=== PATIENT | female | born 1995 | race Caucasian/White ===

== ENCOUNTER → 2019-06-09 08:56 | Outpatient (BNVA) | payer BC, MEDICAID, SELFPAY | PROVIDERS: PCP Nurse Practitioner Family; Visit Provider Nurse Practitioner Family | DX: Z3A.01 Less than 8 weeks gestation of pregnancy (principal) | CPT/HCPCS: 81025 ==

== ENCOUNTER 2020-01-11 17:21 | Outpatient (CLI) | payer BC, MEDICAID, SELFPAY ==
[2020-01-11 18:02] VITALS: TEMP 36.7
[2020-01-11 18:04] VITALS: BMI 24.0
[2020-01-11 18:41] LABS: Bilirubin Urine Neg (NEGATIVE); Blood Urine Neg (Negative); Glucose Urine UA Norm (Normal); Ketones Urine Negative (Negative); Leukocyte Esterase Urine Negative (Negative); Nitrate Urine Negative (Negative); Protein Urine Neg (Negative); Urine Appearance Clear (CLEAR); Urine Color Yellow (Yellow); Urobilinogen Urine 4 mg/dL (Negative); pH Urine 6.5 (5-7)
[2020-01-11 18:42] LABS: Add Urine Culture? No; Bacteria Urine TRACE; Mucus Urine TRACE; Squamous Epithelial Cell Urine 0-4 (0-5); WBC Urine 0-4 /hpf (0-5)
== END 2020-01-11 19:18 | disposition home or self-care (01) ==
LOC: OPOB 17:33 → OBGYN 19:11
PROVIDERS: PCP Nurse Practitioner Family; Visit Provider Family Medicine
DX: O26.899 Other specified pregnancy related conditions, unspecified trimester (principal); Z3A.00 Weeks of gestation of pregnancy not specified; R10.9 Unspecified abdominal pain
CPT/HCPCS: 59025; 81001; 99211

== ENCOUNTER 2020-02-12 15:13 | Outpatient (CLI) | payer BC, MEDICAID, SELFPAY ==
[2020-02-12 15:13] VITALS: RESP 16; TEMP 37
[2020-02-12 15:21] VITALS: BMI 25.7
[2020-02-12 15:28] VITALS: BP 133/64; PULSE 112
== END 2020-02-12 16:16 | disposition home or self-care (01) ==
LOC: OPOB 15:19 → OBGYN 15:20
PROVIDERS: PCP Nurse Practitioner Family; Visit Provider Family Medicine
DX: O26.899 Other specified pregnancy related conditions, unspecified trimester (principal); Z3A.00 Weeks of gestation of pregnancy not specified; R10.9 Unspecified abdominal pain
CPT/HCPCS: 59025; 99211

== ENCOUNTER 2020-02-16 22:12 | Inpatient (IN) | payer BC, MEDICAID, SELFPAY ==
[2020-02-16 21:19] VITALS: TEMP 37
[2020-02-16 21:26] VITALS: BMI 25.9
[2020-02-16 21:39] VITALS: BP 97/57; PULSE 110
[2020-02-16 23:28] VITALS: BP 112/63; PULSE 96
[2020-02-17] VITALS (133 sets, daily range): BP systolic 0–153; BP diastolic 0–88; PULSE 50–146; RESP 16–22; TEMP 36.5–37.6; O2SAT 96–99
[2020-02-17 00:43] LABS: Basophils % 0.2 %; Eosinophils # 0.1 10^3/uL (0.0-0.8); Eosinophils % 0.4 %; Hematocrit 33.4 % (37.0-47.0); Hemoglobin 10.9 g/dL (11.5-15.3); Lymphocytes # 3.2 10^3/uL (0.8-4.8); Lymphocytes % 19.1 %; Mean Corpuscular HGB Conc 32.6 g/dL (30.0-36.0); Mean Corpuscular Hemoglobin 29.5 pg (28.0-34.0); Mean Corpuscular Volume 90.5 fL (81-99); Mean Platelet Volume 10.6 fL (7.4-10.4); Monocytes # 1.2 10^3/uL (0.2-0.9); Monocytes % 6.9 %; Neutrophils # 12.28 10^3/uL (1.8-7.7); Neutrophils % 72.7 %; Nucleated Red Blood Cells % 0 %; Platelet Count 287 10^3/cmm (130-400); Red Blood Count 3.69 10^6/uL (4.1-5.3); Red Cell Distribution Width 12.8 % (12.1-15.1); White Blood Count 16.9 10^3/uL (4.0-10.0)
[2020-02-17] MEDS: lactated ringers 1,000 ML 999 ML IV (01:03)
--- NOTE | 2020-02-17 02:15 | ANES.PREANE2 ---
Pre-Anesthetic Assessment Pre-Anesthetic Assessment: Height/Weight: Height 1.68 m Weight 73.028 kg Temp Pulse BP 98.6 F 82 116/67 02/16/20 21:19 02/17/20 01:06 02/17/20 01:06 Preop Diagnosis: labor Proposed Procedure: epidural Was Beta Yamini taken within 24 hours: N/A Last Intake: 20:00 Social: Social History: Tobacco (1/2 ppd) and No alcohol Pack years: 5 yrs Exam: Pre-Anes Outpt Exam: alert, oriented x 3, clear to auscultation bilaterally and regular rate & rhythm Airway: Submandibular: WNL Cervical ROM: WNL MP: 1 Additional comments: tongue ring Pulmonary: Pulmonary: None reported CV/HEM: CV/HEM: None reported : : None reported Hepatic: Hepatic: None reported GI: GI: GERD (with ) Metabolic: Metabolic: None reported Musc/skel: Musc/skel: None reported Neuropsych: Neuropsych: None reported Anesthetic Plan: ASA status: 2 Anesthesia: Anesthesia Evaluation and Regional (specify below) (epidural) Risk of > 500 ml blood loss (7ml/kg in children): No PFSH Anesthesia PFSH: Family History (Updated 06/09/19 @ 08:44 by Elly Yadav LPN) Other Cancer Hypertension Female Reproductive History: Date of last menstrual period: 05/01/19 : 1 Data Anesthesia CBC & Chem 7: 02/17/20 00:00 Other Labs: Laboratory Results - last 48 hr 02/17/20 00:00 WBC 16.9 H RBC 3.69 L Hgb 10.9 L Hct 33.4 L MCV 90.5 MCH 29.5 MCHC 32.6 RDW 12.8 Plt Count 287 MPV 10.6 H Neut % (Auto) 72.7 Lymph % (Auto) 19.1 Metcalfe % (Auto) 6.9 Eos % (Auto) 0.4 Baso % (Auto) 0.2 Neut # (Auto) 12.28 H Lymph # (Auto) 3.2 Metcalfe # (Auto) 1.2 H Eos # (Auto) 0.1 Baso # (Auto) 0.0 Nucleated RBC % (auto) 0 Nucleated RBCs # 0.0 Cardiac Studies: No Data to Display
--- NOTE | 2020-02-17 02:51 | ANES.PROC ---
Anesthesia Procedures Procedure/Date: 02/17/20 Epidural: Time Out Performed: Yes Consents Signed: Procedure Consent and NPO Consent Consent: requested by attending/covering physician, from patient, risks and benefits reviewed and patient agrees to proceed Lumbar Level: L3-L4 Epidural position: sitting Epidural procedure: sterile prep of area (betadine), 1% lidocaine to numb the area (3ml), 18 g needle, neg for paresthesia, test dose given, 1.5% xylocaine 1:200k epi (5ml), 0.2% Ropivacaine bolus ml (5ml), no systemic response, sterile dressing applied, L.U.D. no apparent complications and 0.2% Ropiavacaine @ mls/hr (13ml/hr)
[2020-02-17] MEDS: oxytocin 30 UNIT/500 ML BAG IV (06:31)
[2020-02-17] MEDS: dextrose 5%-lactated ringers 1,000 ML 125 ML IV (11:38)
[2020-02-17] MEDS: ondansetron 2 mg/ML SDV 2 mL 4 MG IVP ×2 (12:30→17:44)
--- NOTE | 2020-02-17 12:30 | PC.NURSE ---
COVID [address] Sotelo that hospital policy states patients have to be swabbed for COVID 19 using the PCR send out test. This nurse nurse discussed with the patient that she would need to be swabbed again, patient stated, I don't want to be swabbed again, please don't swab me. Patient declined COVID 19 swab.
--- NOTE | 2020-02-17 12:40 | PM.MISC ---
Miscellaneous Note Purpose of Documentation: Epidural progress note Note: Called for increased pain of contractions. Epidural had been working well then quit working on right side, then left side. No apparent movement of catheter upon visual exam. Bolused epidural w/ bupivicaine 0.25% 8 cc with some improvement in pain. Patient is 9 cm dilated so would prefer not replacing epidural at this stage.
--- NOTE | 2020-02-17 17:44 | PM.DELIVERY ---
Delivery Note: Date of delivery: February 17, 2020 Pre-Delivery Course: The patient had routine care at [facility]. There were no complications during the . Delivery: This is a 24-year-old G1, P0 at 40 weeks 6 days gestation who presented to labor and delivery in active labor. She was scheduled for postdate induction but presented the night before in active labor. She was olivia regularly and had cervical change. She was admitted and received an epidural for pain management. Her labor seemed to stall out so it was augmented using Pitocin. She had artificial rupture of membranes approximately 5 hours prior to delivery with moderate meconium. She had a normal spontaneous vaginal delivery of a viable male weight 7 pounds 10 ounces, 3465 g, Apgars 9 and 9 over an intact perineum. The infant was suctioned at delivery and placed on the mother's chest. The cord was clamped and cut. The placenta was delivered grossly intact and normal to inspection. There was a first-degree left labial laceration that was sutured using 3-0 chromic. Mother and infant were doing well after delivery. Estimated blood loss 200 mL. 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
[2020-02-17] MEDS: acetaminophen 325 mg Tablet 650 MG PO (18:49)
--- NOTE | 2020-02-17 21:25 | PC.NURSE ---
Patient moved from LDR3 to 204-2 via ambulation in stable condition at 2014.
--- NOTE | 2020-02-18 01:25 | PC.NURSE ---
discussed with pt plans for feeding. pt is 'stressed' about baby latching. made plan with patient to sleep, and cup feed at next feeding time. then try to latch again.
[2020-02-18 01:27] VITALS: BP 76/48; PULSE 91; RESP 14; TEMP 36.6; O2SAT 97
[2020-02-18 03:23] VITALS: BP 100/56; PULSE 92; RESP 16; TEMP 36.9; O2SAT 99
[2020-02-18 06:03] LABS: Hematocrit 30.1 % (37.0-47.0); Hemoglobin 9.8 g/dL (11.5-15.3); Mean Corpuscular HGB Conc 32.6 g/dL (30.0-36.0); Mean Corpuscular Hemoglobin 29.7 pg (28.0-34.0); Mean Corpuscular Volume 91.2 fL (81-99); Mean Platelet Volume 10.5 fL (7.4-10.4); Platelet Count 246 10^3/cmm (130-400); White Blood Count 21.6 10^3/uL (4.0-10.0)
[2020-02-18 07:54] VITALS: BP 104/58; PULSE 59; RESP 16; TEMP 37.1; O2SAT 99
--- NOTE | 2020-02-18 08:14 | P.ANESPOST_ITS ---
Inpatient post-anesthesia follow up: Airway intact: Yes Vital signs: Temperature 98.7 F Pulse Rate 59 Respiratory Rate 16 Blood Pressure 104/58 Pulse Oximetry 99 Oxygen Delivery Me thod Room Air Oxygen Flow Rate Fraction of Inspir ed Oxygen Hydration adequate: Yes Nausea and vomiting: No Pain level: 3 Mental status: Baseline Additional Comments: Patient in sitz bath, up and walking, no residual weakness, urinating ok, no complaints of headaches, no irritat ion/complaints at neuraxial site
[2020-02-18] MEDS: docusate sodium 100 mg Capsule PO ×2 (08:55→18:41)
[2020-02-18] MEDS: prenatal vitamin Capsule 1 CAP PO (08:55)
[2020-02-18 16:00] VITALS: BP 96/46; PULSE 68; RESP 16; TEMP 36.8
--- NOTE | 2020-02-18 17:22 | P.DS_ITS ---
Discharge Providers Date of Admission: 02/16/20 22:12 Date of Discharge: February 18, 2020 Attending Provider at Admission: Maggy Sotelo MD Attending Provider at Discharge: Maggy Sotelo MD Primary Care Provider: Tamara Rinaldi Diagnoses at Discharge Discharge Diagnosis (1) Normal spontaneous vaginal delivery: Status: Acute Reason for Visit Reason for Visit: Contractions Hospital Course Hospital Course: This is a 24-year-old G1 now P1 who was admitted in active labor. She had a normal spontaneous vaginal delivery of a viable male infant at 40 weeks and 6 days gestation. Mother and infant did well after delivery. Mother was ambulating, tolerating a regular diet, had decreased vaginal bleeding and was requesting discharge home. Physical Exam HENMT: COMMON NORMALS: normocephalic HEAD & SCALP: normocephalic Eye: COMMON NORMALS: Equal, round and reactive pupils present PUPIL: Yes Equal, round and reactive pupils present Chest: COMMONS NORMALS: normal inspection of the chest Resp: COMMON NORMALS: normal respiratory effort, No retractions and clear to auscultation bilaterally AUSCULTATION: clear to auscultation bilaterally Cardio: COMMON NORMALS: regular rate and regular rhythm RATE: regular rate RHYTHM: regular rhythm GI: COMMON NORMALS: Soft to palpation (Fundus firm U- 2), non-tender and No hepatosplenomegaly present PALPATION: Yes Soft to palpation (Fundus firm U- 2) and Yes No hepatosplenomegaly present Urinary Catheter Management^: [place]: Cath Placed During This Visit: yes Reason for Continuing Indwelling Catheter: Required Immobilization for Trauma or Surgery or Anesthesia Urinary Catheter Date of Insertion: 02/17/20 Urinary Catheter Time of Insertion: 03:30 Discharge Data Data Completed and Pending: Labs from last 24 hours 02/18/20 05:36 WBC 21.6 H RBC 3.30 L Hgb 9.8 L Hct 30.1 L MCV 91.2 MCH 29.7 MCHC 32.6 RDW 13.0 Plt Count 246 MPV 10.5 H Vitals: Last Vital Signs Temp 98.2 F 02/18/20 16:00 Pulse 68 02/18/20 16:00 Resp 16 02/18/20 16:00 BP 96/46 02/18/20 16:00 Pulse Ox 99 02/18/20 07:54 Discharge Plan Discharge Patient Disposition: Home Condition: Stable Prescriptions: No Action No Known Home Medications RF: 0 Discharge Orders: Discharge Order (Routine); Ordered 02/18/20 Ordered By: Maggy Sotelo Referrals: Maggy Sotelo MD [Physician] - 1 month Discharge Diet: Usual diet Discharge Activity: Limit activity as instructed Discharge Attestations Time Spent in Discharge Care*: less than 30 min Quality Metrics Clinical Quality Measures During this hospital stay, did patient experience: None Coding Level of Care Code Acute Inspector Balance Wheel Motion for Chg Fwd Diagnoses Normal spontaneous vaginal delivery O80
[2020-02-18 20:00] VITALS: BP 99/59; PULSE 77; RESP 16; TEMP 36.7; O2SAT 98
[2020-02-18 20:26] VITALS: BP 99/59; PULSE 77; RESP 16; TEMP 36.7; O2SAT 98
== END 2020-02-18 21:10 | disposition home or self-care (01) | DRG 807 ==
LOC: OPOB 22:26 → OBGYN 22:26
PROVIDERS: Admitting Provider Family Medicine; PCP Nurse Practitioner Family; Visit Provider Family Medicine
DX: O77.0 Labor and delivery complicated by meconium in amniotic fluid (principal); Z37.0 Single live birth; Z3A.40 40 weeks gestation of pregnancy; O70.0 First degree perineal laceration during delivery
CPT/HCPCS: 12345; 36415; 51702; 59025; 59409; 85025; 85027; 96375; 99211; J2405; J2795

== ENCOUNTER 2020-04-04 16:57 | Emergency (ER) | payer BC, MEDICAID, SELFPAY ==
[2020-04-04 17:02] VITALS: BP 112/72; PULSE 114; RESP 18; TEMP 36.5; O2SAT 97; BMI 22.6
--- NOTE | 2020-04-04 17:44 | ED_ITS ---
HPI - Animal Bite General: Chief Complaint: Animal Bite Stated Complaint: Right leg monkey bite Time Seen by Provider: 04/04/20 17:38 History of Present Illness: HPI narrative: 24-year-old female patient presents to the emergency department with right lower extremity laceration due to monkey bite she sustained approximately 1 hour prior to arrival. She reports monkey was purchased through an exotic animal purchase at [facility] on 04/02/2020. She reports tried to put the monkey back in the cage when the monkey bit her. Reports monkey is currently in [place] and not in her posssession. She reports it was not hers and belongs to a friend. Police Department has been contacted to try to identify where the monkey can be obtained. Vaccine/health records are not available. complaint: animal bite Onset (ago): hour(s) (1) Animal: other (monkey) Description of animal: immunizations unknown Mechanism: bite Location: other (RLE ) Pain description: burning Context: unprovoked Associated symptoms: Reports no associated symptoms; Deny chills, diaphoresis, fever(s) or headache(s) Review of Systems General: Reports: 10 or more systems reviewed and unremarkable except in HPI and below Const: Denies: fever(s), chills or diaphoresis Eyes: Denies: blurry vision or eye redness ENMT: Denies: throat pain, dental pain or disequilibrium Card: Denies: chest pain, palpitations or irregular heart rhythm Resp: Denies: dyspnea, productive cough, non-productive cough or wheezing GI: Denies: abdominal pain, nausea or vomiting : Denies: difficulty voiding or dysuria Musc: Denies: back pain Skin/Breast: Reports: skin tenderness (laceration to the RLE); Denies: rash or pruritus Neuro: Denies: headache(s), weakness in extremities or behavioral changes Psych: Denies: anxiety or depression Trae/Lymph: Denies: easy bruising PFS ED PFSH: Family History (Updated 06/09/19 @ 08:44 by Elly Yadav LPN) Other Cancer Hypertension Female Reproductive History: Date of last menstrual period: 05/01/19 Physical Exam Const: COMMON NORMALS: no acute distress, patient oriented x3, healthy appearing and alert GENERAL APPEARANCE: cooperative, comfortable and well hydrated HENMT: COMMON NORMALS: normocephalic, Normal external nose present and moist oral mucous membranes HEAD & SCALP: normocephalic NOSE: Normal external nose present Eye: COMMON NORMALS: Equal, round and reactive pupils present and EOMs intact bilaterally GENERAL EYE: appearance normal, both eyes and all related structures PUPIL: Yes Equal, round and reactive pupils present Neck/C-Spine: COMMON NORMALS: full ROM and no lymphadenopathy GENERAL: Yes normal visual inspection and Yes trachea midline CERVICAL SPINE: Yes cervical ROM normal Lymph: LYMPHATIC: no lymphadenopathy noted Chest: COMMONS NORMALS: normal inspection of the chest Resp: COMMON NORMALS: normal respiratory effort and clear to auscultation bilaterally AUSCULTATION: clear to auscultation bilaterally Cardio: COMMON NORMALS: regular rhythm, S1 normal heart sound present and S2 normal heart sound present RHYTHM: regular rhythm HEART SOUNDS: S1 normal heart sound present and S2 normal heart sound present GI: COMMON NORMALS: Soft to palpation and non-tender INSPECTION: Yes normal to inspection PALPATION: Yes Soft to palpation : COMMON NORMALS: Yes no CVA tenderness BLADDER/KIDNEY EXAM: Yes no CVA tenderness Back/Pelvis: COMMON NORMALS: no CVA tenderness and thoracic and lumbar spine normal to inspection Extremity: COMMON NORMALS: normal to inspection, full ROM and capillary refill normal GENERAL: Yes normal exam except as noted Neuro: COMMON NORMALS: patient oriented x3 and no focal motor deficits SENSORIUM/ORIENTATION: Yes alert Psych: COMMON NORMALS: mental status grossly normal, Normal thought process present and cooperative ACTIVITY/MOTOR BEHAVIOR: Yes appropriate eye contact THOUGHT PROCESS: Normal thought process present Skin: COMMON NORMALS: no rashes or lesions noted and turgor normal GENERAL SKIN EXAM: no rashes or lesions noted and turgor normal RASHES: no rashes TRAUMA: laceration (7 cm x 3 cm open laceration to the anterior, distal thigh, proximal to the right knee.) linear, contaminated, involves subcutaneous tissue, motor nerve function intact and sensation intact Procedures Laceration Laceration 1: Site: lower extremity (right lower thigh) Side (If applicable): right Size (cm): 7 Description: contaminated Depth: simple, single layer Local Anesthetic: lidocaine 1% and with epi Amount of anesthesia used (mL): 7 Number of sutures: 6 Technique: simple, interrupted and other (loosely applied due to animal bite) Course ED course: 24-year-old female patient presents to the emergency department with laceration to the right lower thigh from monkey bite. Call to the [facility] department who referred my call to viral immunology center at [facility] in [place] due to risk for herpes virus B. Valacyclovir initiated secondary to your risk factor of herpes virus B, rabies immunoglobulin and vaccine series initiated upon exam. She will be placed on Augmentin for prophylactic prevention. Laceration repair completed to the right lower extremity, loosely repaired secondary to infection risk. Advised follow- up in the ED on day 3 for repeat rabies vaccine series and laceration follow-up. Advised to return to the emergency department if she develops confusion, headache or fever. Verbalized understanding. Police have evaluated the patient here in the ED in regards to the animal. Vital Signs: Vital signs: Vital Signs Temperature 97.7 F 04/04/20 17:02 Pulse Rate 100 04/04/20 19:58 Respiratory Rate 16 04/04/20 19:58 Blood Pressure 114/77 04/04/20 19:58 Pulse Oximetry 98 04/04/20 19:58 Discharge Plan Discharge Patient Disposition: Home Clinical Impression: Laceration Animal bite of left thigh Qualifiers: Encounter type: initial encounter Qualified Code(s): S71.152A - Open bite, left thigh, initial encounter Condition: Stable Prescriptions: New Augmentin 875-125 mg tablet 1 tab PO Q12H Qty: 20 RF: 0 valacyclovir 1 gram tablet 1,000 mg PO Q8H 10 Days Qty: 30 RF: 0 Discharge Orders: Discharge Order (Routine); Ordered 04/04/20 Ordered By: Eneida Rothman Referrals: MITZY MARLEY [Other] Tamara Rinaldi FNP [Primary Care Provider] - Discharge Diet: Usual diet Discharge Activity: Limit activity as instructed Patient Instructions: Rabies Vaccine (Injection), Rabies Immune Globulin (Injection), Laceration (ED), Rabies (ED) Activity Restrictions/Additional Instructions: Return to the emergency department on day 3, 7 and day 14 - today is day 0, you will need to return to the ED on for next series of vaccine Sutures to be removed in approximately 7 days, you will need to cleanse with soap and water and pat dry daily, careful not to rub sutures Monitor for signs and symptoms of infection such as redness, swelling of the site, drainage or fever chills. You will need to take acyclovir 1 g 3 times daily for prevention of herpes virus B, virus carried by monkeys. Health department will be contacting you in the next several days regarding monkey bite If you develop headache, confusion, or difficulty with vision, return to the ED immediately Discharge Date/Time: 04/04/20 20:00 Coding Level of Care Code ED Dyer Helper for Eriberto Kay Exam Comprehensive
--- NOTE | 2020-04-04 18:16 | XR_ITS ---
WS: [id number] Right femur and thigh, AP and lateral views, 04/04/2020 Clinical Data: rt thigh monkey bite Comparison: None. Findings: No fractures or dislocations are seen. The soft tissues are normal. The visualized knee shows no abno rmalities. The right hip is unremarkable. No radiopaque foreign bodies are seen. XR/XR femur RT min 2V* [id number] Impression: Negative right femur and thigh.
[2020-04-04] MEDS: amoxicillin-clav 875-125 mg Tablet 1 TAB PO (19:33)
[2020-04-04] MEDS: valACYclovir 1,000 mg Tablet 1000 MG PO (19:34)
[2020-04-04] MEDS: rabies vaccine 2.5 unit SDV IM (19:37)
[2020-04-04] MEDS: rabies IG 300 unit/mL SDV 1 mL 1200 UNIT INFILTRATI (19:38)
[2020-04-04 19:58] VITALS: BP 114/77; PULSE 100; RESP 16; O2SAT 98
== END 2020-04-04 20:00 | disposition home or self-care (01) ==
PROVIDERS: Emergency Provider Nurse Practitioner Family; PCP Nurse Practitioner Family
DX: S71.152A Open bite, left thigh, initial encounter (principal); W55.81XA Bitten by other mammals, initial encounter; Z20.3 Contact with and (suspected) exposure to rabies; Z29.14 Encounter for prophylactic rabies immune globulin
CPT/HCPCS: 12002; 12345; 73552; 90375; 90471; 90675; 96372; 99281; 99283

== ENCOUNTER → 2021-05-23 16:17 | Outpatient (BNVA) | payer BC, MEDICAID, SELFPAY | PROVIDERS: PCP Nurse Practitioner Family; Visit Provider Nurse Practitioner Family | DX: Z13.220 Encounter for screening for lipoid disorders (principal); Z00.00 Encounter for general adult medical examination without abnormal findings; R63.4 Abnormal weight loss; Z12.4 Encounter for screening for malignant neoplasm of cervix | CPT/HCPCS: 87624 ==

== ENCOUNTER → 2021-05-30 11:56 | Outpatient (BNVA) | payer MEDICAID, SELFPAY | PROVIDERS: PCP Nurse Practitioner Family; Visit Provider Nurse Practitioner Family | DX: Z13.220 Encounter for screening for lipoid disorders (principal); R63.4 Abnormal weight loss; Z00.00 Encounter for general adult medical examination without abnormal findings | CPT/HCPCS: 80053; 80061; 84443; 85025 ==

== ENCOUNTER → 2022-04-16 12:37 | Outpatient (BNVA) | payer MEDICAID, SELFPAY | PROVIDERS: PCP Nurse Practitioner Family; Visit Provider Nurse Practitioner Family | DX: R53.83 Other fatigue (principal); R63.4 Abnormal weight loss; Z00.00 Encounter for general adult medical examination without abnormal findings; R22.1 Localized swelling, mass and lump, neck; Z13.220 Encounter for screening for lipoid disorders | CPT/HCPCS: 80053; 80061; 84439; 84443; 84481 ==

== ENCOUNTER 2022-06-12 06:41 | Outpatient (CLI) | payer MEDICAID, SELFPAY ==
--- NOTE | 2022-06-12 07:00 | US_ITS ---
WS: [id number] ULTRASOUND SOFT TISSUES RIGHT neck. HISTORY: knot on right side of neck COMPARISON: None available. TECHNIQUE: 2-D and color Doppler imaging is submitted. Palpable area along the RIGHT cervical chain corresponds to small benign-appearing cervical lymph nod es. Normal fatty hilum and normal ovoid appearance. US/US soft tissue head neck [id number] IMPRESSION: Normal RIGHT cervical chain lymph nodes.
== END 2022-06-12 06:42 | disposition home or self-care (01) ==
LOC: RAD 06:44
PROVIDERS: PCP Nurse Practitioner Family; Visit Provider Nurse Practitioner Family
DX: R22.1 Localized swelling, mass and lump, neck (principal)
CPT/HCPCS: 76536

== ENCOUNTER → 2022-06-28 11:45 | Outpatient (BNVA) | payer MEDICAID, SELFPAY | PROVIDERS: PCP Nurse Practitioner Family; Visit Provider Nurse Practitioner Family | DX: R59.1 Generalized enlarged lymph nodes (principal); H60.90 Unspecified otitis externa, unspecified ear; Z79.899 Other long term (current) drug therapy | CPT/HCPCS: 80053; 82306; 82607; 83735; 84443; 85025 ==

== ENCOUNTER → 2023-03-22 13:00 | Outpatient (BNVA) | payer MEDICAID, SELFPAY | PROVIDERS: PCP Nurse Practitioner Family; Visit Provider Nurse Practitioner Family | DX: Z12.4 Encounter for screening for malignant neoplasm of cervix (principal); R53.83 Other fatigue; Z13.220 Encounter for screening for lipoid disorders; E55.9 Vitamin D deficiency, unspecified | CPT/HCPCS: 80053; 80061; 82306; 82607; 83735; 84443; 85025; 87624 ==

== ENCOUNTER → 2023-05-08 15:57 | Outpatient (BNVA) | payer MEDICAID, SELFPAY | PROVIDERS: PCP Nurse Practitioner Family; Visit Provider Nurse Practitioner Family | DX: J02.9 Acute pharyngitis, unspecified (principal); M54.2 Cervicalgia; M25.511 Pain in right shoulder | CPT/HCPCS: 87071; 87880 ==

== ENCOUNTER 2023-05-09 16:30 | Outpatient (CLI) | payer MEDICAID, SELFPAY ==
--- NOTE | 2023-05-09 16:40 | XR_ITS ---
WS: [id number] Right shoulder, 2 views, 05/09/2023 Clinical Data: M25.511 - Pain in right shoulder Comparison: None. Findings: No fractures or dislocations are seen. The AC joint is normal. The adjacent right clavicle, right sca pula and ribs are normal. The soft tissues are unremarkable. Impression: Negative right shoulder.
--- NOTE | 2023-05-09 16:40 | XR_ITS ---
WS: [id number] Cervical spine, 3 views, 05/09/2023 Clinical Data: M54.2 - Cervicalgia Comparison: None. Findings: No compression fractures are seen. The disc heights are normal. There is no prevertebral so ft tissue swelling. The odontoid is unremarkable. The soft tissues of the neck and the lung apices ar e normal. Impression: Negative cervical spine.
== END 2023-05-09 16:31 | disposition home or self-care (01) ==
LOC: RAD 16:33
PROVIDERS: PCP Nurse Practitioner Family; Visit Provider Nurse Practitioner Family
DX: M54.2 Cervicalgia (principal); M25.511 Pain in right shoulder
CPT/HCPCS: 72040; 73030

== ENCOUNTER → 2023-08-20 12:00 | Outpatient (BNVA) | payer MEDICAID, SELFPAY | PROVIDERS: PCP Nurse Practitioner Family; Visit Provider Nurse Practitioner Family | DX: N63.0 Unspecified lump in unspecified breast (principal); E55.9 Vitamin D deficiency, unspecified | CPT/HCPCS: 82306 ==

== ENCOUNTER 2023-09-12 10:48 | Outpatient (CLI) | payer MEDICAID, SELFPAY ==
--- NOTE | 2023-09-12 10:52 | US_ITS ---
WS: [id number] ULTRASOUND BREAST LEFT TECHNIQUE: Ultrasound left breast focused area of concern. CLINICAL INFORMATION: LT BR LUMP COMPARISON: None. FINDINGS: Ultrasound LEFT breast at the 3 o'clock position in the area of palpable concern. Tiny incidental sup erficial cyst corresponds to the area of palpable concern measuring 3 x 2 mm. In addition, there is a small ovoid hypoechoic lesion which is indeterminate at the 3 o'clock positio n near the area of palpable concern 4 cm from the nipple measuring 6 x 5 x 5 mm. Small amount of thro ugh-transmission. This may represent a complex cyst but indeterminate and recommend further evaluatio n with ultrasound-guided biopsy. Findings discussed with patient. IMPRESSION: Recommend ultrasound-guided biopsy of the ovoid hypoechoic lesion at the 3 o'clock position.
== END 2023-09-12 10:49 | disposition home or self-care (01) ==
LOC: RAD 10:49
PROVIDERS: PCP Nurse Practitioner Family; Visit Provider Nurse Practitioner Family
DX: N60.02 Solitary cyst of left breast (principal)
CPT/HCPCS: 76642

== ENCOUNTER 2023-09-25 10:29 | Outpatient (CLI) | payer MEDICAID, SELFPAY ==
--- NOTE | 2023-09-25 11:45 | US_ITS ---
WS: [email or web address] ULTRASOUND-GUIDED LEFT BREAST BIOPSY CLINICAL INFORMATION: N63.20 - Unspecified lump in the left breast, unspecified... FINDINGS: The procedure including risks, benefits, and complications were discussed with the patient who agreed to proceed. Using sterile technique patient was prepped and draped in the usual sterile fashion. Aft er 1% lidocaine utilizing real-time ultrasound guidance 5 14-gauge cores were obtained of the LEFT br east lesion at the 3 o'clock position 4 cm from the nipple. No clip was placed. No immediate complica tions. Pathology demonstrates features consistent with fibroepithelial lesion. No atypia or malignancy. IMPRESSION: 1. Uncomplicated ultrasound-guided LEFT breast biopsy. 2. The pathology demonstrates features consistent with fibroepithelial lesion. No atypia or malignan cy. US/[place] [id number] BI-RADS: 3-Probably Benign FOLLOW UP: 6 Month Follow-up Recommend 6-month follow-up LEFT breast diagnostic mammography and ultrasound t o confirm stability of the biopsied lesion.
== END 2023-09-25 10:30 | disposition home or self-care (01) ==
LOC: RAD 10:29
PROVIDERS: PCP Nurse Practitioner Family; Visit Provider Nurse Practitioner Family
DX: N63.20 Unspecified lump in the left breast, unspecified quadrant (principal); N60.22 Fibroadenosis of left breast
CPT/HCPCS: 19083; 88305

== ENCOUNTER 2024-04-23 10:49 | Outpatient (CLI) | payer MEDICAID, SELFPAY ==
--- NOTE | 2024-04-23 11:30 | US_ITS ---
WS: [email or web address] ULTRASOUND BREAST LEFT TECHNIQUE: Ultrasound left breast focused area of concern. CLINICAL INFORMATION: N63.20 - Unspecified lump in the left breast, unspecified... COMPARISON: 09/12/2023. FINDINGS: Again seen is the hypoechoic previously biopsied lesion at the 3 o'clock position LEFT breast 4 cm fr om the nipple. This is stable in appearance compared to the prior examination measuring 5 x 3 x 6 mm. This measures slightly smaller today. Previous pathology demonstrated fibroepithelial lesion. No aty carrol or malignancy. Findings are probably benign and recommend additional 6-month follow-up with ultrasound to confirm 1 year stability due to a somewhat irregular appearance on ultrasound. US/US breast LT limited* [id number] IMPRESSION: BI-RADS 3 probably benign Recommend 6-month follow-up LEFT breast ultrasound to confirm 1 year stability
== END 2024-04-23 10:50 | disposition home or self-care (01) ==
LOC: RAD 10:50
PROVIDERS: PCP Nurse Practitioner Family; Visit Provider Nurse Practitioner Family
DX: N63.23 Unspecified lump in the left breast, lower outer quadrant (principal)
CPT/HCPCS: 76642

== ENCOUNTER 2024-05-11 15:00 | Outpatient (CLI) | payer MEDICAID, SELFPAY ==
--- NOTE | 2024-05-11 15:00 | US_ITS ---
WS: [id number] EARLY OBSTETRICAL ULTRASOUND (<14 WEEKS). HISTORY: N93.9 - Abnormal uterine and vaginal bleeding, unspecified COMPARISON: None available. Normally positioned uterus. Uterus is anteverted. There is no intrauterine gestational sac identified . Normal trilaminar appearance of the endometrium measuring 1.0 cm. Cervix is closed. Both ovaries are identified and contain multiple small peripheral follicles. RIGHT ovary measures 4.3 x 2.3 x 3.2 cm. LEFT ovary measures 2.9 x 2.8 x 2.1 cm. Normal vascularity. No additional adnexal ma sses. There is a small amount of free fluid in the cul-de-sac. US/US OB <=14 wk fetus w transvag IMPRESSION: 1. No intrauterine gestation is identified. Normal endometrium. 2. No adnexal masses other than the normal ovaries. 3. Small amount of free fluid in the cul-de-sac. If there is a positive beta hCG ectopic is not excluded. Recommend se rial beta hCG evaluations and additional transvaginal ultrasound follow-up may be of benefit.
== END 2024-05-11 15:07 | disposition home or self-care (01) ==
PROVIDERS: PCP Nurse Practitioner Family; Visit Provider Nurse Practitioner Family
DX: N93.9 Abnormal uterine and vaginal bleeding, unspecified (principal); O20.9 Hemorrhage in early pregnancy, unspecified
CPT/HCPCS: 76801; 76817; 81025; 84702; 85025

== ENCOUNTER → 2024-05-13 08:21 | Outpatient (BNVA) | payer MEDICAID, SELFPAY | PROVIDERS: PCP Nurse Practitioner Family; Visit Provider Nurse Practitioner Family | DX: O20.9 Hemorrhage in early pregnancy, unspecified (principal); Z3A.00 Weeks of gestation of pregnancy not specified | CPT/HCPCS: 84702 ==

== ENCOUNTER → 2024-05-15 08:57 | Outpatient (BNVA) | payer MEDICAID, SELFPAY | PROVIDERS: PCP Nurse Practitioner Family; Visit Provider Nurse Practitioner Family | DX: O20.9 Hemorrhage in early pregnancy, unspecified (principal); Z3A.00 Weeks of gestation of pregnancy not specified | CPT/HCPCS: 84702 ==

== ENCOUNTER → 2024-05-19 13:52 | Outpatient (BNVA) | payer MEDICAID, SELFPAY | PROVIDERS: PCP Nurse Practitioner Family; Referring Provider Nurse Practitioner Family; Visit Provider Obstetrics & Gynecology | DX: O20.9 Hemorrhage in early pregnancy, unspecified (principal); Z3A.00 Weeks of gestation of pregnancy not specified | CPT/HCPCS: 84702 ==

== ENCOUNTER → 2024-06-16 12:57 | Outpatient (BNVA) | payer MEDICAID, SELFPAY | PROVIDERS: PCP Nurse Practitioner Family; Visit Provider Nurse Practitioner Family | DX: E55.9 Vitamin D deficiency, unspecified (principal) | CPT/HCPCS: 82306 ==

== ENCOUNTER → 2024-06-23 12:52 | Outpatient (BNVA) | payer MEDICAID, SELFPAY | PROVIDERS: PCP Nurse Practitioner Family; Visit Provider Obstetrics & Gynecology | DX: O03.9 Complete or unspecified spontaneous abortion without complication (principal) | CPT/HCPCS: 81025 ==

== ENCOUNTER → 2024-06-29 12:25 | Outpatient (BNVA) | payer MEDICAID, SELFPAY | PROVIDERS: PCP Nurse Practitioner Family; Visit Provider Nurse Practitioner Family | DX: F41.9 Anxiety disorder, unspecified (principal); F32.A Depression, unspecified; R53.83 Other fatigue | CPT/HCPCS: 80053; 82607; 82746; 83735; 84443; 85025 ==

== ENCOUNTER → 2024-10-07 16:00 | Outpatient (BNVA) | payer MEDICAID, SELFPAY | PROVIDERS: PCP Nurse Practitioner Family; Visit Provider Nurse Practitioner | DX: J02.9 Acute pharyngitis, unspecified (principal) | CPT/HCPCS: 87071; 87880 ==

== ENCOUNTER → 2024-12-15 08:23 | Outpatient (BNVA) | payer SELFPAY | PROVIDERS: PCP Nurse Practitioner Family; Visit Provider Nurse Practitioner Family | DX: E55.9 Vitamin D deficiency, unspecified (principal) | CPT/HCPCS: 82306 ==